=== PATIENT | male | born 1975 | race Caucasian/White ===

== ENCOUNTER 2017-08-29 11:27 | Day surgery (SDC) | payer OTHER ==
[2017-08-29] MEDS ORDERED: PROPOFOL 40 ML (13:13)
[2017-08-29] MEDS ORDERED: LIDOCAINE 2% (SDV) 5 ML INJ (13:13)
[2017-08-29] MEDS ORDERED: MIDAZOLAM 1 MG/ML 2 ML INJ (13:13)
[2017-08-29] MEDS ORDERED: PROPOFOL 20 ML ×2 (13:50)
[2017-08-29] MEDS ORDERED: EPHEDrine SULFATE 50 MG/5 ML SYG (14:21)
== END 2017-08-29 17:38 | disposition home or self-care (01) ==
LOC: GIL 11:27
DX: D12.5 Benign neoplasm of sigmoid colon (principal); K29.60 Other gastritis without bleeding; K44.9 Diaphragmatic hernia without obstruction or gangrene; K21.9 Gastro-esophageal reflux disease without esophagitis; K64.8 Other hemorrhoids
CPT/HCPCS: 43239; 88305; 88312